=== PATIENT | female | born 1995 | race African-American/Black ===

== ENCOUNTER 2021-01-02 21:02 | Emergency (ER) | payer OTHER ==
[~2021-01-02] VITALS: Ht 160 cm; Wt 94.5 kg
[2021-01-02 22:03] LABS: BASOPHILS % (AUTO) 0.5 % (0.0-2.0); EOSINOPHILS % (AUTO) 1.7 % (1.0-6.0); HEMOGLOBIN 11.7 g/dL (12.0-16.0); LYMPHOCYTES # (AUTO) 2.4 K/uL (1.0-4.8); LYMPHOCYTES % (AUTO) 46.4 % (22.0-44.0); MEAN CORPUSCULAR HEMOGLOBIN 22.1 pg (26.0-34.0); MEAN CORPUSCULAR HGB CONC 31.6 G/dL (31.0-37.0); MEAN CORPUSCULAR VOLUME 70 fL (80-100); MONOCYTES # (AUTO) 0.5 K/uL (0.1-1.0); MONOCYTES % (AUTO) 10.1 % (2.0-9.0); NEUTROPHILS # (AUTO) 2.2 K/uL (1.8-7.7); NEUTROPHILS % (AUTO) 41.3 % (40.0-70.0); PLATELET COUNT (AUTO) 224 K/uL (150-450); RED BLOOD CELL COUNT(AUTO) 5.28 MIL/uL (4.00-5.20); RED CELL DISTRIBUTION WIDTH 15.1 % (11.5-14.5)
[2021-01-02 22:59] LABS: PLATELET MORPHOLOGY COMMENT GIANT PLTS PRESENT
[2021-01-02] MEDS ORDERED: ACETAMINOPHEN 500 MG TABLET PO ONE (23:45)
[2021-01-03 02:24] VITALS: BP 127/89
== END 2021-01-03 02:31 | disposition home or self-care (01) ==
LOC: EMS 21:02
DX: O20.9 Hemorrhage in early pregnancy, unspecified (principal); Z3A.01 Less than 8 weeks gestation of pregnancy
CPT/HCPCS: 76830; 76856; 84702; 85025; 86901; 99285